=== PATIENT | male | born 1995 | race Caucasian/White ===

== ENCOUNTER 2016-06-30 22:51 | Emergency (ER) | payer OTHER ==
[2016-06-30] MEDS ORDERED: methylPREDNISolone SOD SUCC 125 MG/2 ML VIAL IVP ONE (23:25)
[2016-06-30] MEDS ORDERED: FAMOTIDINE 20 MG in NS 100 ML IV ONE (23:25)
--- NOTE | 2016-06-30 23:25 | EDPHY ---
H & P Stated Complaint: ATE SOME PEANUTS IN FOOD, ITCHY THROAT RUNNY NOSE TOOK BENADR Time Seen by Provider: 06/30/16 23:09 HPI/ROS: HPI The patient presents with throat pain and swelling which has been present since about 10:40 p.m. tonight after he accidentally ate peanut butter in a sauce. The patient has a known peanut allergy. Immediately after he ate the sauce he felt his lips tingling and his throat tingling. As he found out there was peanut butter in it. He induced vomiting. He took Benadryl 50 mg p.o.. He had progression of his symptoms non the less so came into the emergency room. He denies any shortness of breath, wheezing, dizziness, diaphoresis. He is currently recovering from an upper respiratory tract infection and has had rhinorrhea and coughing. He has an EpiPen, however did not use it.. REVIEW OF SYSTEMS Constitutional: No fever, no chills. Eyes: No discharge. ENT: No sore throat. Cardiovascular: No chest pain, no palpitations. Respiratory: No cough, no shortness of breath. Gastrointestinal: No abdominal pain, no vomiting. Genitourinary: No hematuria. Musculoskeletal: No back pain. Skin: No rashes. Neurological: No headache. PMHx: Peanut allergy Soc Hx: FHx: PHYSICAL General Appearance: Alert, no distress Eyes: Pupils equal and round no pallor or injection ENT, Mouth: Posterior pharynx is erythematous and slightly edematous, Mucous membranes moist Respiratory: There are no retractions, lungs are clear to auscultation, no stridor is present Cardiovascular: Regular rate and rhythm Gastrointestinal: Abdomen is soft and non-tender, no masses, bowel sounds normal Neurological: A&O, moves all extremities Skin: Warm and dry, no rashes Musculoskeletal: Neck is supple non tender Extremities: symmetrical, full range of motion Psychiatric: Patient is oriented X 3, there is no agitation Source: Patient Exam Limitations: No limitations - Personal History Current Tetanus/Diphtheria Vaccine: Yes Current Tetanus Diphtheria and Acellular Pertussis (TDAP): Yes - Medical/Surgical History Hx Asthma: No Hx Chronic Respiratory Disease: No Hx Diabetes: No Hx Cardiac Disease: No Hx Renal Disease: No Hx Cirrhosis: No Hx Alcoholism: No Hx HIV/AIDS: No Hx Splenectomy or Spleen Trauma: No Other PMH: CELIAC - Social History Smoking Status: Never smoked Constitutional: Initial Vital Signs Temperature (C) 37.0 C 06/30/16 22:53 Heart Rate 69 06/30/16 22:53 Respiratory Rate 18 06/30/16 22:53 Blood Pressure 121/84 H 06/30/16 22:53 O2 Sat (%) 96 06/30/16 22:53 O2 Delivery Mode Room Air Allergies/Adverse Reactions: cefixime [From Suprax] Allergy (Verified 06/30/16 23:03) clarithromycin [From Biaxin] Allergy (Verified 11/18/12 21:26) gluten Allergy (Verified 11/18/12:) Penicillins Allergy (Verified 11/18/12:) Sulfa (Sulfonamide Antibiotics) Allergy (Verified 11/18/12:) dairy Allergy (Uncoded 11/18/12:) peanuts Allergy (Uncoded 11/18/12 21:25) Home Medications: Medication Instructions Recorded Albuterol Hfa Anes Only [Proair 2 puffs IH QID 06/30/16 Hfa Icu (*)] Medical Decision Making ED Course/Re-evaluation: The patient was monitored in the ER with no worsening of his symptoms. He was given Solu-Medrol and Pepcid, Benadryl was held given he took Benadryl 50 mg p.o. just prior to arrival. His symptoms improved and he felt well enough to go home. He will be discharged. He has 2 epi pens at home. We have discussed return precautions. Differential Diagnosis: This is a 21-year-old man with history of peanut allergy who presents after accidentally ingesting peanut butter at 10:40 p.m. tonight. He induced vomiting and took Benadryl 50 mg. His symptoms include throat tingling and lip tingling. On exam, his posterior pharynx is slightly edematous with no signs of impending airway compromise. He does not have any hives, wheezing, hypotension. Differential diagnosis includes allergic reaction, anaphylaxis pharyngitis. He would not like epinephrine. - Data Points Medications Given: Discontinued Medications Famotidine 20 mg/ Sodium (Chloride) 102 mls @ 408 mls/hr IV EDNOW ONE Stop: 06/30/16 23:39 Last Admin: 06/30/16 23:39 Dose: 102 mls Methylprednisolone Sodium Succinate (Solu-Medrol) 125 mg IVP EDNOW ONE Stop: 06/30/16 23:26 Last Admin: 06/30/16 23:40 Dose: 125 mg Departure - Departure Disposition: Home, Routine, Self-Care Clinical Impression: Allergic reaction Qualifiers: Encounter type: initial encounter Qualified Code(s): T78.40XA - Allergy, unspecified, initial encounter Condition: Good Instructions: Peanut Allergy (ED) Additional Instructions: Please return to the emergency room if your worse in any way. Referrals: NONE *PRIMARY CARE P,. [Primary Care Provider] - As per Instructions
[2016-07-01 00:20] VITALS: BP 119/71; PULSE 58; RESP 15; TEMP 97.7; O2SAT 98
== END 2016-07-01 00:19 | disposition home or self-care (01) ==
DX: T78.1XXA Other adverse food reactions, not elsewhere classified, initial encounter (principal); Z91.010 Allergy to peanuts
CPT/HCPCS: 96365